=== PATIENT | male | born 1955 | race Hispanic/Latino ===

== ENCOUNTER → 2022-01-24 | Outpatient (CLI) | payer OTHER ==
[~2022-01-24] MED LIST: ASPI-1197 PO; ATEN50TA PO; CHOL50004 PO; LEVO150T11 PO; SIMV-43 PO
== END | disposition home or self-care (01) ==
LOC: RAH 11:16
PROVIDERS: ATTEND Orthopaedic Surgery
DX: M17.12 Unilateral primary osteoarthritis, left knee (principal); M25.462 Effusion, left knee
CPT/HCPCS: 73721

== ENCOUNTER 2022-07-08 06:39 | Observation (INO) | payer OTHER ==
[2022-07-05 09:24] LABS: EOSINOPHILS % (AUTO) 2.8 % (0.0-8.0); HEMATOCRIT 48.2 % (42-54); LYMPHOCYTES % (AUTO) 20.9 % (21.0-51.0); MEAN CORPUSCULAR HEMOGLOBIN 28.6 pg (27.0-33.0); MEAN CORPUSCULAR HGB CONC 32.8 g/dL (32.0-36.0); MEAN CORPUSCULAR VOLUME 87.2 fL (79-99); MONOCYTES % (AUTO) 7.7 % (3.0-13.0); NEUTROPHILS % (AUTO) 67.2 % (40.0-77.0); PLATELET COUNT (AUTO) 235 K/uL (130-400); RED BLOOD CELL COUNT(AUTO) 5.53 MIL/uL (4.50-6.20); WHITE BLOOD COUNT (AUTO) 9.8 K/uL (4.8-10.8)
[2022-07-05 09:40] LABS: INR 0.98 (0.85-1.15); PROTHROMBIN TIME 10.7 SEC (9.6-11.6)
[2022-07-05 09:41] LABS: CRP QUANTITATIVE 3.2 mg/L (0.00-9.0); PARTIAL THROMBOPLASTIN TIME 27.3 SEC (26.3-35.5); POTASSIUM 4.2 mmol/L (3.5-5.1)
[2022-07-05 09:43] LABS: APPEARANCE,URINE CLEAR (CLEAR); BILIRUBIN,URINE NEGATIVE (NEGATIVE); COLOR,URINE YELLOW (YELLOW); GLUCOSE, URINE (UA) NEGATIVE (NEGATIVE); KETONES,URINE NEGATIVE (NEGATIVE); LEUKOCYTE ESTERASE ,URINE NEGATIVE Leu/uL (NEGATIVE); NITRATE,URINE NEGATIVE (NEGATIVE); OCCULT BLOOD,URINE NEGATIVE (NEGATIVE); PH,URINE 6.5 (5.0-8.0); PROTEIN,URINE NEGATIVE (NEGATIVE)
[2022-07-05 10:00] VITALS: BP_SYST 148; BP_SYST 172; BP_DIAS 79; BP_DIAS 87
[2022-07-05] MEDS: CEFAZOLIN SODIUM 2 GM VIAL IVPB SCH (11:30)
[2022-07-06] MEDS: CEFAZOLIN SODIUM 2 GM VIAL IVPB SCH (11:30)
[2022-07-07] MEDS: CEFAZOLIN SODIUM 2 GM VIAL IVPB SCH (11:30)
[2022-07-08] VITALS (19 sets, daily range): BP systolic 93–161; BP diastolic 58–81
[~2022-07-08] VITALS: Ht 177.8 cm; Wt 116.0 kg
[~2022-07-08 06:39] MED LIST changes: +KETOROLAC 30MG VIAL (30MG/ML) ONE; +LOSA100T58 PO; +METF-444 PO; +OMEP40CA21 PO; +ROPIVACAINE 0.5% 5MG/ML 30ML IJ ONE; +TRANEXAMIC ACID 1000MG/10ML ONE
[2022-07-08] MEDS ORDERED: 0.9%NACL 1000ML 1,000 ML IV ONE (08:00)
[2022-07-08] MEDS ORDERED: CEFAZOLIN SODIUM 1 GM VIAL ONE (08:00)
[2022-07-08] MEDS ORDERED: LIDOCAINE PF 100MG/5ML (2%) SYRINGE 5ML ONE (08:42)
[2022-07-08] MEDS ORDERED: PROPOFOL 10 MG/ML 20ML VIAL IV ONE (08:43)
[2022-07-08] MEDS ORDERED: MIDAZOLAM HCL 1 MG/ML 2ML VIAL ONE (08:43)
[2022-07-08] MEDS ORDERED: FENTANYL CITRATE PF 50 MCG/1 ML 2ML VIAL ONE ×2 (08:44→11:14)
[2022-07-08] MEDS ORDERED: ROCURONIUM 10MG/1ML SYR 10 MG/ML ML ONE ×2 (08:44→09:51)
[2022-07-08] MEDS ORDERED: GLYCOPYRROLATE 1 MG/5 ML SYRINGE ONE (09:05)
[2022-07-08] MEDS ORDERED: EPHEDRINE SULFATE 50 MG/ML AMPULE ONE (09:06)
[2022-07-08] MEDS ORDERED: CEFAZOLIN SODIUM 2 GM VIAL IVPB ONE (09:18)
[2022-07-08] MEDS ORDERED: TRANEXAMIC ACID 1000MG/10ML IV ONE (09:23)
[2022-07-08] MEDS ORDERED: PHENYLEPHRINE HCL 10 MG/ML 1ML VIAL IV ONE (09:42)
[2022-07-08] MEDS ORDERED: ONDANSETRON 4MG INJ ONE (09:49)
[2022-07-08] MEDS ORDERED: DEXAMETHASONE SOD PHOSPHATE 4 MG/ML 1ML VIAL ONE (09:49)
[2022-07-08] MEDS ORDERED: KETOROLAC 30MG VIAL (30MG/ML) IVP ONE (09:50)
[2022-07-08] MEDS ORDERED: ROPIVACAINE 0.5% 5MG/ML 30ML IJ ONE (09:51)
[2022-07-08] MEDS ORDERED: NEOSTIGMINE 5MG/5ML SYR IV ONE (10:50)
[2022-07-08] MEDS ORDERED: KETOROLAC 15MG/ML VIAL (15MG/ML) IV PRN (11:30)
[2022-07-08] MEDS ORDERED: CALCIUM CARB 500MG PO PRN (11:30)
[2022-07-08] MEDS ORDERED: LIDOCAINE HCL-MPF 1% 2ML VIAL IV PRN (11:30)
[2022-07-08] MEDS ORDERED: FERROUS FUMARATE 324 MG TABLET PO PRN (11:30)
[2022-07-08] MEDS ORDERED: POTASSIUM CHLORIDE 10% ELIXIR 20 MEQ/15 ML UDCUP PO PRN (11:30)
[2022-07-08] MEDS ORDERED: DiphenhydrAMINE HCL 50 MG/ML VIAL IVP PRN (11:30)
[2022-07-08] MEDS: KETOROLAC 15MG/ML VIAL (15MG/ML) IV SCH ×2 (11:30→20:07)
[2022-07-08] MEDS ORDERED: TRAMADOL HCL 50 MG TABLET PO PRN (11:30)
[2022-07-08] MEDS ORDERED: POTASSIUM CHLORIDE 20MEQ/100ML 100 ML IV PRN (11:30)
[2022-07-08] MEDS ORDERED: KCL 20 MEQ ERTAB PO PRN (11:30)
[2022-07-08] MEDS: CEFAZOLIN SODIUM 2 GM VIAL IVPB SCH (11:30)
[2022-07-08] MEDS ORDERED: CYCLOBENZAPRINE HCL 10 MG TABLET PO PRN (11:30)
[2022-07-08] MEDS ORDERED: MEPERIDINE-PF 25 MG/ML SYG ONE ×2 (11:49→12:07)
[2022-07-08] MEDS ORDERED: KETOROLAC 30MG VIAL (30MG/ML) ONE (12:19)
[2022-07-08] MEDS: ONDANSETRON 4MG INJ IVP PRN ×2 (12:22→15:46)
[2022-07-08] MEDS: 0.9%NACL 1000ML 1,000 ML IV SCH (15:45)
[2022-07-08] MEDS: GABAPENTIN 100 MG CAPSULE PO SCH ×2 (15:57→20:07)
[2022-07-08] MEDS: CEFAZOLIN SODIUM 1 GM VIAL IVP SCH (17:16)
[2022-07-08] MEDS: DOCUSATE SODIUM 100 MG CAP PO SCH (20:07)
[2022-07-08] MEDS: SIMVASTATIN 20 MG TABLET PO SCH (20:07)
[2022-07-09] MEDS: 0.9%NACL 1000ML 1,000 ML IV SCH ×2 (00:09→07:30)
[2022-07-09] MEDS: CEFAZOLIN SODIUM 1 GM VIAL IVP SCH (00:10)
[2022-07-09] MEDS: KETOROLAC 15MG/ML VIAL (15MG/ML) IV SCH (04:12)
[2022-07-09 04:31] VITALS: BP 110/63
[2022-07-09 04:36] LABS: HEMATOCRIT 38.3 % (42-54); MEAN CORPUSCULAR HEMOGLOBIN 28.5 pg (27.0-33.0); MEAN CORPUSCULAR HGB CONC 32.1 g/dL (32.0-36.0); MEAN CORPUSCULAR VOLUME 88.7 fL (79-99); RED BLOOD CELL COUNT(AUTO) 4.32 MIL/uL (4.50-6.20); RED CELL DISTRIBUTION WIDTH 13.2 % (11.0-15.5); WHITE BLOOD COUNT (AUTO) 17.1 K/uL (4.8-10.8)
[2022-07-09 04:43] LABS: POTASSIUM 4.1 mmol/L (3.5-5.1)
[2022-07-09] MEDS: LEVOTHYROXINE 150 MCG TABLET PO SCH (06:52)
[2022-07-09 08:00] VITALS: BP 145/67
[2022-07-09] MEDS: LOSARTAN 100 MG TABLET PO SCH (08:00)
[2022-07-09] MEDS: DOCUSATE SODIUM 100 MG CAP PO SCH ×2 (08:00→20:15)
[2022-07-09] MEDS: PANTOPRAZOLE 40 MG TAB DR PO SCH (08:01)
[2022-07-09] MEDS: ASPIRIN 325MG TAB PO SCH (08:01)
[2022-07-09] MEDS: POLYETHYLENE GLYCOL 3350 17 GM POWD.PACK PO SCH (08:01)
[2022-07-09] MEDS: GABAPENTIN 100 MG CAPSULE PO SCH ×3 (08:04→20:15)
[2022-07-09] MEDS: METFORMIN HCL 500 MG TAB.SR.24H PO SCH (08:04)
[2022-07-09] MEDS: ATENOLOL 50 MG TABLET PO SCH (08:06)
[2022-07-09] MEDS: CHOLECALCIFEROL 5000 UNIT PO SCH (08:09)
[2022-07-09] MEDS: CEFAZOLIN SODIUM 2 GM VIAL IVPB SCH (11:30)
[2022-07-09 12:00] VITALS: BP 96/50
[2022-07-09] MEDS: HYDROCODONE/ACETAMINOPHEN 5/325 MG TAB PO PRN ×2 (14:32→23:51)
[2022-07-09 16:00] VITALS: BP 111/57
[2022-07-09] MEDS: SIMVASTATIN 20 MG TABLET PO SCH (20:15)
[2022-07-09 20:16] VITALS: BP 119/56
[2022-07-10] VITALS: BP 118/44
[2022-07-10 04:19] VITALS: BP 130/64
[2022-07-10] MEDS: LEVOTHYROXINE 150 MCG TABLET PO SCH (06:21)
[2022-07-10] MEDS: GABAPENTIN 100 MG CAPSULE PO SCH ×2 (08:04→15:16)
[2022-07-10] MEDS: DOCUSATE SODIUM 100 MG CAP PO SCH (08:04)
[2022-07-10] MEDS: LOSARTAN 100 MG TABLET PO SCH (08:04)
[2022-07-10] MEDS: METFORMIN HCL 500 MG TAB.SR.24H PO SCH (08:04)
[2022-07-10] MEDS: ASPIRIN 325MG TAB PO SCH (08:05)
[2022-07-10] MEDS: POLYETHYLENE GLYCOL 3350 17 GM POWD.PACK PO SCH (08:05)
[2022-07-10] MEDS: PANTOPRAZOLE 40 MG TAB DR PO SCH (08:05)
[2022-07-10 08:10] VITALS: BP 148/76
[2022-07-10] MEDS: ATENOLOL 50 MG TABLET PO SCH (08:10)
[2022-07-10] MEDS: CHOLECALCIFEROL 5000 UNIT PO SCH (09:00)
[2022-07-10] MEDS ORDERED: CYCL-309 PO (09:58)
[2022-07-10] MEDS ORDERED: GABA100C PO (09:58)
[2022-07-10] MEDS ORDERED: HYDR-4060 PO (09:58)
[2022-07-10] MEDS ORDERED: DOCU-116 PO (09:58)
[2022-07-10] MEDS ORDERED: ASPI-1026 PO (09:58)
[2022-07-10] MEDS ORDERED: FERR324T10 PO (09:58)
[2022-07-10] MEDS: CEFAZOLIN SODIUM 2 GM VIAL IVPB SCH (11:30)
[2022-07-10 12:50] VITALS: BP 114/62
[2022-07-11] MEDS ORDERED: BISACODYL 10 MG SUPP.RECT RC PRN (11:30)
== END 2022-07-10 18:35 ==
LOC: DAH 06:39 → DAHIP 06:40 → DAH 06:40 → 4AH 13:10
PROVIDERS: ADMIT Student in an Organized Health Care Education/Training Program; ATTEND Student in an Organized Health Care Education/Training Program
DX: M17.11 Unilateral primary osteoarthritis, right knee (principal); Z20.822 Contact with and (suspected) exposure to COVID-19; D62 Acute posthemorrhagic anemia; I10 Essential (primary) hypertension; E78.5 Hyperlipidemia, unspecified; K21.9 Gastro-esophageal reflux disease without esophagitis; G47.30 Sleep apnea, unspecified; Z79.899 Other long term (current) drug therapy
CPT/HCPCS: 82040; 80048 ×2; 85025; 85610; 85730; 87088; 84134; 86140; 87426; 81003; 36415 ×2; 87641; 27447; 96374; 96375; 76942; 64447; 82948 ×2; 73560; 97161; 97039 ×5; 97530 ×5; 96376; 85027; 97116 ×4; J1100; G0378 ×52; A4663; J7030 ×3; J3010 ×2; J0690 ×4; J3490 ×4; J2710; J2001; J2250; J2704; J2405 ×2; J1885 ×5; J2175 ×2; J2795 ×2; J2370; G0168; A4649 ×4; C1776; A6255; A5120; A4215; A4223; A4222; A4221

== ENCOUNTER 2022-10-07 05:56 | Observation (INO) | payer OTHER ==
[2022-10-04 08:58] LABS: BASOPHILS % (AUTO) 0.8 % (0.0-5.0); HEMATOCRIT 42.9 % (42-54); LYMPHOCYTES % (AUTO) 22.7 % (21.0-51.0); MEAN CORPUSCULAR HEMOGLOBIN 27.5 pg (27.0-33.0); MEAN CORPUSCULAR HGB CONC 32.9 g/dL (32.0-36.0); MEAN CORPUSCULAR VOLUME 83.6 fL (79-99); MONOCYTES % (AUTO) 8.8 % (3.0-13.0); NEUTROPHILS % (AUTO) 64.2 % (40.0-77.0); PLATELET COUNT (AUTO) 262 K/uL (130-400); RED BLOOD CELL COUNT(AUTO) 5.13 MIL/uL (4.50-6.20); RED CELL DISTRIBUTION WIDTH 13.7 % (11.0-15.5); WHITE BLOOD COUNT (AUTO) 7.6 K/uL (4.8-10.8)
[2022-10-04 09:01] LABS: APPEARANCE,URINE CLEAR (CLEAR); BILIRUBIN,URINE NEGATIVE (NEGATIVE); COLOR,URINE LIGHT-YELLOW (YELLOW); GLUCOSE, URINE (UA) NEGATIVE (NEGATIVE); KETONES,URINE NEGATIVE (NEGATIVE); LEUKOCYTE ESTERASE ,URINE NEGATIVE Leu/uL (NEGATIVE); NITRATE,URINE NEGATIVE (NEGATIVE); OCCULT BLOOD,URINE NEGATIVE (NEGATIVE); PROTEIN,URINE NEGATIVE (NEGATIVE)
[2022-10-04 09:14] VITALS: BP 161/77
[2022-10-04 09:14] LABS: ALBUMIN 3.5 g/dL (3.5-5.0); CREATININE 0.9 mg/dL (0.5-1.5); CRP QUANTITATIVE 5.4 mg/L (0.00-9.0); POTASSIUM 4.1 mmol/L (3.5-5.1)
[2022-10-04 09:20] LABS: INR 0.96 (0.85-1.15); PROTHROMBIN TIME 10.5 SEC (9.6-11.6)
[2022-10-04 09:22] LABS: PARTIAL THROMBOPLASTIN TIME 28.3 SEC (26.3-35.5)
[2022-10-07] VITALS (27 sets, daily range): BP systolic 111–178; BP diastolic 53–82
[~2022-10-07] VITALS: Ht 177.8 cm; Wt 117.9 kg
[~2022-10-07 05:56] MED LIST changes: +AEC81 PO; -ASPI-1197 PO; -KETOROLAC 30MG VIAL (30MG/ML) ONE; +LATA7.5D OU; -LOSA100T58 PO; +LOSA100T59 PO; -ROPIVACAINE 0.5% 5MG/ML 30ML IJ ONE; -TRANEXAMIC ACID 1000MG/10ML ONE
[2022-10-07] MEDS ORDERED: CEFAZOLIN SODIUM 1 GM VIAL ONE (06:11)
[2022-10-07] MEDS ORDERED: 0.9%NACL 1000ML 1,000 ML IV ONE (06:12)
[2022-10-07] MEDS ORDERED: TRANEXAMIC ACID 1000MG/10ML ONE (06:55)
[2022-10-07] MEDS ORDERED: KETOROLAC 30MG VIAL (30MG/ML) ONE (06:56)
[2022-10-07] MEDS ORDERED: BUPIVACAINE/PF 0.5% 30ML VIAL ONE (06:56)
[2022-10-07] MEDS ORDERED: PROPOFOL 10 MG/ML 20ML VIAL IV ONE (07:12)
[2022-10-07] MEDS ORDERED: NEOSTIGMINE 5MG/5ML SYR IV ONE (07:12)
[2022-10-07] MEDS ORDERED: ONDANSETRON 4MG INJ ONE (07:12)
[2022-10-07] MEDS ORDERED: DEXAMETHASONE SOD PHOSPHATE 10MG/ML 1ML VIAL ONE (07:12)
[2022-10-07] MEDS ORDERED: LIDOCAINE PF 100MG/5ML (2%) SYRINGE 5ML ONE (07:12)
[2022-10-07] MEDS ORDERED: GLYCOPYRROLATE 1 MG/5 ML SYRINGE ONE (07:12)
[2022-10-07] MEDS ORDERED: SUCCINYLCHOLINE 200MG/10ML SYR ONE (07:12)
[2022-10-07] MEDS ORDERED: FENTANYL CITRATE PF 50 MCG/1 ML 2ML VIAL ONE (07:13)
[2022-10-07] MEDS ORDERED: MIDAZOLAM HCL 1 MG/ML 2ML VIAL ONE (07:13)
[2022-10-07] MEDS ORDERED: ROCURONIUM 10MG/1ML SYR 10 MG/ML ML ONE (07:13)
[2022-10-07] MEDS ORDERED: CEFAZOLIN SODIUM 2 GM VIAL IVPB ONE (07:24)
[2022-10-07] MEDS ORDERED: KETOROLAC 30MG VIAL (30MG/ML) IVP ONE (07:33)
[2022-10-07] MEDS ORDERED: BUPIVACAINE/PF 0.5% 30ML VIAL INJ ONE (07:34)
[2022-10-07] MEDS ORDERED: CYCLOBENZAPRINE HCL 10 MG TABLET PO PRN (10:00)
[2022-10-07] MEDS ORDERED: KETOROLAC 15MG/ML VIAL (15MG/ML) IV PRN (10:00)
[2022-10-07] MEDS ORDERED: DiphenhydrAMINE HCL 50 MG/ML VIAL IVP PRN (10:00)
[2022-10-07] MEDS ORDERED: POTASSIUM CHLORIDE 10% ELIXIR 20 MEQ/15 ML UDCUP PO PRN (10:00)
[2022-10-07] MEDS ORDERED: CALCIUM CARB 500MG PO PRN (10:00)
[2022-10-07] MEDS ORDERED: FERROUS FUMARATE 324 MG TABLET PO PRN (10:00)
[2022-10-07] MEDS ORDERED: POTASSIUM CHLORIDE 20MEQ/100ML 100 ML IV PRN (10:00)
[2022-10-07] MEDS ORDERED: ONDANSETRON 4MG INJ IVP PRN (10:00)
[2022-10-07] MEDS ORDERED: TRAMADOL HCL 50 MG TABLET PO PRN (10:00)
[2022-10-07] MEDS ORDERED: MEPERIDINE-PF 25 MG/ML SYG ONE (10:10)
[2022-10-07] MEDS: KETOROLAC 15MG/ML VIAL (15MG/ML) IV SCH ×2 (10:16→15:46)
[2022-10-07] MEDS: 0.9%NACL 1000ML 1,000 ML IV SCH ×2 (11:13→20:11)
[2022-10-07] MEDS: HYDROCODONE/ACETAMINOPHEN 5/325 MG TAB PO PRN (11:16)
[2022-10-07] MEDS: CEFAZOLIN SODIUM 1 GM VIAL IVP SCH ×2 (15:21→22:12)
[2022-10-07] MEDS: GABAPENTIN 100 MG CAPSULE PO SCH ×2 (15:22→21:34)
[2022-10-07] MEDS: SIMVASTATIN 20 MG TABLET PO SCH (21:34)
[2022-10-07] MEDS: DOCUSATE SODIUM 100 MG CAP PO SCH (21:34)
[2022-10-07] MEDS: LATANOPROST 2.5 ML DROPS OU SCH (21:34)
[2022-10-08] MEDS: KETOROLAC 15MG/ML VIAL (15MG/ML) IV SCH (01:41)
[2022-10-08] MEDS: 0.9%NACL 1000ML 1,000 ML IV SCH (05:05)
[2022-10-08 05:16] LABS: HEMATOCRIT 34.5 % (42-54); MEAN CORPUSCULAR HEMOGLOBIN 28.3 pg (27.0-33.0); MEAN CORPUSCULAR HGB CONC 32.8 g/dL (32.0-36.0); MEAN CORPUSCULAR VOLUME 86.3 fL (79-99); RED CELL DISTRIBUTION WIDTH 13.8 % (11.0-15.5); WHITE BLOOD COUNT (AUTO) 9.8 K/uL (4.8-10.8)
[2022-10-08 05:37] LABS: CREATININE 1.1 mg/dL (0.5-1.5); POTASSIUM 3.8 mmol/L (3.5-5.1)
[2022-10-08] MEDS: LEVOTHYROXINE 150 MCG TABLET PO SCH (06:35)
[2022-10-08 08:00] VITALS: BP 130/66
[2022-10-08] MEDS: HYDROCODONE/ACETAMINOPHEN 5/325 MG TAB PO PRN ×2 (08:09→21:09)
[2022-10-08 08:16] VITALS: BP 130/66
[2022-10-08] MEDS: CHOLECALCIFEROL 5000 UNIT PO SCH (09:00)
[2022-10-08] MEDS: POLYETHYLENE GLYCOL 3350 17 GM POWD.PACK PO SCH (09:36)
[2022-10-08] MEDS: DOCUSATE SODIUM 100 MG CAP PO SCH ×2 (09:41→21:08)
[2022-10-08] MEDS: LOSARTAN 100 MG TABLET PO SCH (09:41)
[2022-10-08] MEDS: ASPIRIN 325MG TAB PO SCH (09:41)
[2022-10-08] MEDS: PANTOPRAZOLE 40 MG TAB DR PO SCH (09:41)
[2022-10-08] MEDS: METFORMIN HCL 500 MG TABLET PO SCH (09:42)
[2022-10-08] MEDS: GABAPENTIN 100 MG CAPSULE PO SCH ×3 (09:42→21:09)
[2022-10-08] MEDS: ATENOLOL 50 MG TABLET PO SCH (09:43)
[2022-10-08 11:25] VITALS: BP 119/69
[2022-10-08] MEDS ORDERED: LIDOCAINE HCL-MPF 2% 10ML AMP IJ ONE (11:26)
[2022-10-08] MEDS ORDERED: LIDOCAINE HCL 4% LTA SOL 4 ML VIAL ONE (11:26)
[2022-10-08] MEDS ORDERED: EPHEDRINE SULFATE 50 MG/ML AMPULE ONE (11:52)
[2022-10-08 12:00] VITALS: BP 119/69
[2022-10-08] MEDS: KCL 20 MEQ ERTAB PO PRN ×2 (14:09→16:49)
[2022-10-08 16:00] VITALS: BP 121/68
[2022-10-08 19:00] VITALS: BP 147/74
[2022-10-08] MEDS: SIMVASTATIN 20 MG TABLET PO SCH (21:09)
[2022-10-08] MEDS: LATANOPROST 2.5 ML DROPS OU SCH (21:19)
[2022-10-09] VITALS: BP 113/64
[2022-10-09 04:00] VITALS: BP 146/74
[2022-10-09] MEDS: LEVOTHYROXINE 150 MCG TABLET PO SCH (06:33)
[2022-10-09] MEDS: HYDROCODONE/ACETAMINOPHEN 5/325 MG TAB PO PRN ×2 (06:37→13:21)
[2022-10-09 07:30] VITALS: BP 154/76
[2022-10-09] MEDS: CHOLECALCIFEROL 5000 UNIT PO SCH (09:00)
[2022-10-09] MEDS: ASPIRIN 325MG TAB PO SCH (09:14)
[2022-10-09] MEDS: POLYETHYLENE GLYCOL 3350 17 GM POWD.PACK PO SCH (09:14)
[2022-10-09] MEDS: PANTOPRAZOLE 40 MG TAB DR PO SCH (09:14)
[2022-10-09] MEDS: METFORMIN HCL 500 MG TABLET PO SCH (09:14)
[2022-10-09] MEDS: DOCUSATE SODIUM 100 MG CAP PO SCH (09:15)
[2022-10-09] MEDS: LOSARTAN 100 MG TABLET PO SCH (09:15)
[2022-10-09] MEDS: GABAPENTIN 100 MG CAPSULE PO SCH ×2 (09:16→13:22)
[2022-10-09] MEDS: ATENOLOL 50 MG TABLET PO SCH (09:16)
[2022-10-09 11:25] VITALS: BP 134/64
[2022-10-09] MEDS ORDERED: CYCL-309 PO (14:37)
[2022-10-09] MEDS ORDERED: ASPI-1026 PO (14:37)
[2022-10-09] MEDS ORDERED: DOCU-116 PO (14:37)
[2022-10-09] MEDS ORDERED: HYDR-4060 PO (14:37)
[2022-10-09] MEDS ORDERED: GABA100C PO (14:37)
[2022-10-10] MEDS ORDERED: BISACODYL 10 MG SUPP.RECT RC PRN (10:00)
== END 2022-10-09 17:55 ==
LOC: DAH 05:56 → DAHIP 05:57 → 4DH 10:26
PROVIDERS: ADMIT Student in an Organized Health Care Education/Training Program; ATTEND Student in an Organized Health Care Education/Training Program
DX: M17.12 Unilateral primary osteoarthritis, left knee (principal); Z20.822 Contact with and (suspected) exposure to COVID-19; M25.562 Pain in left knee; R26.89 Other abnormalities of gait and mobility; E11.9 Type 2 diabetes mellitus without complications; D62 Acute posthemorrhagic anemia; Z79.899 Other long term (current) drug therapy; Z98.890 Other specified postprocedural states; Z79.82 Long term (current) use of aspirin; Z79.84 Long term (current) use of oral hypoglycemic drugs
CPT/HCPCS: 82040; 80048 ×2; 85025; 85610; 85730; 87088; 84134; 86140; 87426; 81001; 36415 ×2; 93005; 87641; 97039 ×6; 27447; 96374; 96376 ×2; 96375; 64447; 82948 ×9; 73560; 97161; 85027; 97116 ×4; 97530 ×4; G0378 ×53; A4663; A4215 ×2; J3010; J0690 ×4; J3490 ×6; J0330; J1100; J2710; J7030; J2001; J2250; J2704; J2405; J1885 ×5; J2175; C1713 ×2; G0168; C1776 ×2; A4649 ×4; A6255; A5120; A4223; A4222; A4221